=== PATIENT | male | born 1960 | race Caucasian/White ===

== ENCOUNTER 2019-11-20 09:57 | Day surgery (SDC) | payer BC ==
[2019-11-20] MEDS ORDERED: Lactated Ringers 1,000 ML IV SCH (10:30)
--- NOTE | 2019-11-20 10:47 | HP ---
DATE OF SURGERY: 11/20/2019 HISTORY OF PRESENT ILLNESS: The patient is a 59 year-old with no gross bloody stools, some constipation recently flatter stools. Last colonoscopy he thinks may have been eight years or so ago. He denies any polyps. Family history negative for colon cancer, ulcer or colitis. There is question whether he had a positive Cologuard or not. PAST MEDICAL HISTORY: He denied any chronic illnesses. PAST SURGICAL HISTORY: He denied any prior surgeries though he did have a colonoscopy years ago. MEDICATIONS: None on a regular basis. ALLERGIES: NKDA. FAMILY HISTORY: Diabetes. SOCIAL HISTORY: He denies alcohol abuse. REVIEW OF SYSTEMS: Fourteen systems reviewed. He had some shoulder aches in the past, otherwise pertinent for as above. No chest pain or palpitations other systems negative or noncontributory as above and per preadmission questionnaire. PHYSICAL EXAMINATION: GENERAL: No acute distress. HEENT: Sclerae nonicteric. NECK: No JVD. CHEST: Equal excursion, nonlabored breathing. CVS: Regular rate and rhythm. ABDOMEN: Soft, nontender. No peritoneal signs. EXTREMITIES: No significant edema. NEURO: Alert, oriented, moving extremities symmetrically. No gross motor deficits noted. RECTAL: Deferred timed to endoscopy exam. IMPRESSION: Last colonoscopy years ago. He is in need of follow up screening colonoscopy. Risks and benefits explained in detail including but not limited to bleeding or infection, risk of bowel injury or perforation possibly requiring open procedure, risk of missed or nondiagnosis or incomplete exam possibly requiring barium enema, other studies or procedures, general risk of anesthesia or sedation, risk of bowel prep but not limited to. He understands as well as possibility of inability to diagnose the etiology of his symptoms. He understands all the above but not limited, will proceed with outpatient screening colonoscopy.
[2019-11-20] MEDS ORDERED: DIPRIVAN 200 MG/20 ML IV ONE ×2 (11:26→11:42)
[2019-11-20] MEDS ORDERED: Ketamine HCl 50 MG/ML ONE (11:26)
[2019-11-20 12:29] VITALS: O2SAT 98
[2019-11-20 12:39] VITALS: BP 114/74; PULSE 58
--- NOTE | 2019-11-21 12:18 | OP ---
SURGERY DATE/TIME: 11/20/2019 1130 PREOPERATIVE DIAGNOSIS: History of abdominal bloating, need for screening colonoscopy. POSTOPERATIVE DIAGNOSES: 1) Small, raised area versus normal variation fold of sigmoid colon. 2) Small early polyp versus hyperplastic lesion rectum. 3) Moderate diverticulosis particularly left colon. 4) Fair bowel prep. 5) Small internal and external hemorrhoids. PROCEDURES: 1) Colonoscopy to cecum. 2) Hot biopsy small, vague raised area of sigmoid colon path pending. 3) Hot biopsy small early polyp versus hyperplastic lesion rectum. 4) Random cold biopsy of colon to evaluate for microscopic colitis. 5) Withdrawal time 11 minutes. SURGEON: Dr. Oziel Martinez. ANESTHESIA: MAC. ESTIMATED BLOOD LOSS: Minimal. INDICATIONS: As noted above. Risks and benefits explained in detail and not limited to and consent obtained. DESCRIPTION OF PROCEDURE AND FINDINGS: The patient is taken to the operating room. MAC anesthesia introduced. After official time out and no disagreement with planned procedure, digital rectal exam did not reveal any rectal masses. He did have some small internal and external hemorrhoids. Video colonoscope inserted and passed up the tortuous sigmoid, descending, transverse and ascending colon. With external pressure the scope was able to be passed around to the cecum. Appendiceal orifice and valve well visualized. Prep overall was fair. There was a little bit of liquidy semi-solid stool throughout the colon that was suction irrigated as clear as possible just slightly limiting the exam for very tiny lesions. The scope is slowly and carefully withdrawn over the next 11 minutes. There were no signs of any large polyps, masses or obstructing lesions. He did have moderate diverticulosis particularly in the left colon. Because of his symptom complaints of some bloating issues, I felt he warranted cold biopsies to evaluate for microscopic colitis. There is no macroscopic colitis. Random cold biopsies of the colon were accomplished to evaluate for microscopic colitis. The scope is slowly and carefully pulled back. Again, he had diverticulosis particularly in the left colon back to the sigmoid colon. There was a vague, raised area on a sigmoid colon fold whether this is just normal variation versus hyperplastic or early polyp was unclear. It was removed with hot biopsy forceps. Good hemostasis noted. Otherwise scoped pulled down to the rectum. Small polyp was noted and removed with hot biopsy forceps with brief bursts of cautery. Early polyp versus hyperplastic lesion was removed about 1 mm to 1.5 mm removed with hot biopsy forceps with brief bursts of cautery. Good hemostasis noted. Otherwise he had some small internal and external hemorrhoids. There were no sign of any large polyps, masses or obstructing lesions. Again he did have moderate diverticulosis in the left colon.
== END 2019-11-20 12:50 | disposition home or self-care (01) ==
LOC: SDC 09:57
PROVIDERS: ATTEND Surgery
DX: Z12.11 Encounter for screening for malignant neoplasm of colon (principal); K57.30 Diverticulosis of large intestine without perforation or abscess without bleeding; K64.4 Residual hemorrhoidal skin tags; K64.8 Other hemorrhoids; K63.5 Polyp of colon
CPT/HCPCS: 88305; J2704